=== PATIENT | male | born 2000 | race American Indian/Alaskan Native ===

== ENCOUNTER 2020-07-09 11:31 | Emergency (ER) | payer SELFPAY ==
--- NOTE | 2020-07-09 11:46 | Emergency Department Report ---
<HELIO SANCHEZ - Last Filed: 07/09/20 14:51> ED Psych HPI - General Stated Complaint: MENTAL HEALTH EVAL Time Seen by Provider: 07/09/20 11:44 - History of Present Illness Initial Comments: 20-year-old male presented to triage agitated, with his shirt off, yelling, "Shoot me, shoot me! Take me out!" [facility]men[facility] was called and patient was escorted to the patient treatment area. Patient is currently calm, sitting down with his head in his hands. When I asked patient why he is here, patient responds, "Why am I here? I don't know." When I questioned patient regarding hallucinations, SI, and HI, patient does not respond. According to the nurse's note: Pt's sister, Yousif Up, brought the pt to the ED after increasing episodes of bizarre behavior that have intensified since March of this year. Sister reports that pt has been yelling and screaming loudly in [facility], taking off his clothes and running down the street in his underwear, his younger sister reportedly woke up at 4 am with him standing over her, and yesterday the pt took off his clothes, with the exception of his underwear, and laid in the grass while it was raining outside. Pt denies current SI and HI but his sister reported HI to no one in particular. Pt indicates that he has Schizophrenia but the pt's mother and sister are unaware of any mental health diagnoses. When asked by this RN if he has been diagnosed by a physician the pt says "No, I've been trying to fight it." MD Complaint: altered mental status -: month(s) (3) Associated Psychiatric Symptoms: homicidal ideation Treatments Prior to Arrival: none ED Review of Systems Comment: All other systems reviewed and negative Psychiatric: homicidal thoughts. denies: suicidal thoughts ED Physical Exam - General General appearance: alert, in no apparent distress - Head Head exam: Present: atraumatic, normocephalic - Eye Eye exam: Present: normal appearance, EOMI - ENT ENT exam: Present: mucous membranes moist - Neck Neck exam: Present: normal inspection - Respiratory Respiratory exam: Present: normal lung sounds bilaterally. Absent: respiratory distress - Cardiovascular Cardiovascular Exam: Present: normal rhythm, tachycardia - GI/Abdominal GI/Abdominal exam: Absent: distended - Extremities Exam Extremities exam: Present: normal inspection - Neurological Exam Neurological exam: Present: alert, oriented X3 - Psychiatric Psychiatric exam: Present: normal affect, normal mood - Skin Skin exam: Present: warm, dry, intact, normal color ED Medical Decision Making - Lab Data Result diagrams: 07/09/20 12:05 07/09/20 12:05 - Medical Decision Making 20-year-old male presents to ED for mental health evaluation. Family reports increasingly bizarre behavior over the last 3 months. Patient does not have any known psychiatric diagnoses according to his family, although patient reported that he has schizophrenia. He denies any SI. Sister states patient has reported HI against no one in particular. Labs are unremarkable. Patient has been placed on 1013 at this time. Patient is medically clear for mental health evaluation. Will dispo per psych ED Disposition Clinical Impression: Psychosis Disposition: DC/TX-65 PSY HOSP/PSY UNIT Condition: Stable Referrals: PRIMARY CARE, [Primary Care Provider] - 3-5 Days <KALEE STINSON - Last Filed: 07/10/20 12:44> ED Review of Systems ROS: Stated complaint: MENTAL HEALTH EVAL Other details as noted in HPI ED Course Vital Signs 07/09/20 07/09/20 07/10/20 12:56 20:21 02:06 Temperature 97.4 F L 97.5 F L 97.8 F Pulse Rate 103 H 78 70 Respiratory 20 20 20 Rate Blood Pressure 153/75 122/75 112/62 [Left] O2 Sat by Pulse 98 100 100 Oximetry 07/10/20 07:57 Temperature 98.0 F Pulse Rate 70 Respiratory 18 Rate Blood Pressure 144/81 [Left] O2 Sat by Pulse 100 Oximetry - Reevaluation(s) Reevaluation #1: 07/10/20 12:43 Patient accepted to [facility] ED Medical Decision Making - Lab Data Result diagrams: 07/09/20 12:05 07/09/20 12:05 Critical care attestation.: If time is entered above; I have spent that time in minutes in the direct care of this critically ill patient, excluding procedure time. ED Disposition Is pt being admited?: No Does the pt Need Aspirin: No Time of Disposition: 12:43
[2020-07-09 12:19] LABS: Basophils # (Auto) 0.1 K/mm3 (0.0-0.1); Basophils % (Auto) 1.2 % (0.0-1.8); Eosinophils % (Auto) 0.9 % (0.0-4.3); Hematocrit 44.2 % (35.5-45.6); Hemoglobin 14.7 gm/dl (11.8-15.2); Lymphocytes # (Auto) 1.8 K/mm3 (1.2-5.4); Lymphocytes % (Auto) 34.6 % (13.4-35.0); Mean Corpuscular HGB Conc 33 % (32-34); Mean Corpuscular Volume 80 fl (84-94); Monocytes # (Auto) 0.5 K/mm3 (0.0-0.8); Monocytes % (Auto) 9.1 % (0.0-7.3); Platelet Count 250 K/mm3 (140-440); Red Blood Count 5.55 M/mm3 (3.65-5.03)
[2020-07-09 12:32] LABS: BUN/Creatinine Ratio 11; Blood Urea Nitrogen 16 mg/dL (9-20); Calcium 9.7 mg/dL (8.4-10.2); Hemolysis Index 8
[2020-07-09 15:49] LABS: Bilirubin,Urine NEG (Negative); Blood,Urine NEG (Negative); Color,Urine Yellow (Yellow); Urobilinogen,Urine < 2.0 mg/dL (<2.0)
[2020-07-09 15:56] LABS: WBC,Urine < 1.0 /HPF (0.0-6.0)
[2020-07-09 15:57] LABS: Amphetamine Screen,Urine PRESUMPTIVE NEGATIVE; Benzodiazepines Screen,Urine PRESUMPTIVE NEGATIVE; Cannabinoid Screen,Urine PRESUMPTIVE NEGATIVE; Cocaine Screen,Urine PRESUMPTIVE NEGATIVE; Methadone Screen,Urine PRESUMPTIVE NEGATIVE; Opiate Screen,Urine PRESUMPTIVE NEGATIVE
[2020-07-10 07:59] VITALS: BP 144/81
--- NOTE | 2020-07-10 11:52 | Consultation ---
History of Present Illness - Reason for Consult Consult date: 07/10/20 Reason for consult: bizarre behavior, hallucinating - History of Present Psychiatric Illness Enrique Hackett is a 20y/o male patient who presented to the ER with increasing bizarre behavior, and yelling "shoot me, shoot me. Family states the patient had been running down the street with his clothes off yelling, according to medical record. During my interview with the patient he is lying down, awake. He is staring at the ceiling, other times glancing quickly around the room. He is responding to internal stimuli. He is whispering and barely audible. He is staring with a bizarre look on his face at time. It's difficult to get any information from the patient, and to gauge how much he is being upfront due to his psychosis. The patient says he came here "to get a check up." He then starts barely moving his mouth. The patient then stares at me intensely and then stares back at the ceiling. He responds "no" to most questions I ask him, other times he's just staring intensely at me. When asking about his mood, he asked, "how's yours?" In between questioning he is moving his mouth and and gazing at times. Although it was documented that the patient states he has a history of schizophrenia. The patient denies any psych history during interview. PAST PSYCHIATRIC HISTORY: Suicide attempts or Self-harm behavior: Denies Prior psychiatric hospitalizations: Denies Substance Abuse history: Denies Previous psychiatric medications tried: Denies Outpatient treatment: Denies PAST MEDICAL HISTORY: Family Psychiatric History: None reported or documented SOCIAL HISTORY Unable to obtain REVIEW OF SYSTEMS Constitutional: Negative for weight loss ENT: Negative for stridor Respiratory: Negative for cough or hemoptysis All other systems reviewed and are negative MENTAL STATUS EXAMINATION General Appearance: Dressed appropriately Behavior: calm, cooperative, not forthcoming Mood: Affect and affective range: Restricted Thought Process: Responding to internal stimuli Speech: whispering, mumbling Suicidal Ideation: Denies, unclear came in shouting "shoot me" Homicidal Ideation: Denies Hallucinations: Yes, auditory but the patient denies Delusions: Possibly paranoid Insight and Judgment: Limited Memory/Cognition: Limited Impulse control: Limited Attention: Normal Orientation: Alert, oriented x 3 Assessment Schizoaffective Disorder PLAN 1013 Continue home cogentin Start Depakote DR 125mg po BID Start Risperidone 0.5mg po BID Start Trazodone 50mg po qhs Start Geodon 20mg q6h prn agitation Sitter: Defer to primary Medical: Per primary Disposition: Recommend acute inpatient treatment Will follow. Thank you for this consult Medications and Allergies Allergies Allergy/AdvReac Type Severity Reaction Status Date / Time No Known Allergies Allergy Unverified 07/09/20 15:56 Home Medications Medication Instructions Recorded Confirmed Last Taken Type No Known Home Medications [No 07/09/20 07/09/20 Unknown History Reported Home Medications] Mental Status Exam - Vital signs Last Vital Signs Temp 98.0 F 07/10/20 07:57 Pulse 70 07/10/20 07:57 Resp 18 07/10/20 07:57 BP 144/81 07/10/20 07:57 Pulse Ox 100 07/10/20 07:57 Results Result Diagrams: 07/09/20 12:05 07/09/20 12:05 Abnormal lab results 07/09/20 07/09/20 07/09/20 Range/Units 12:05 12:05 12:05 RBC 5.55 H (3.65-5.03) M/mm3 MCV 80 L (84-94) fl MCH 27 L (28-32) pg RDW 13.0 L (13.2-15.2) % Ware % (Auto) 9.1 H (0.0-7.3) % Creatinine 1.4 H (0.8-1.3) mg/dL Salicylates < 0.3 L (2.8-20.0) mg/dL Acetaminophen (10.0-30.0) ug/mL 07/09/20 Range/Units 12:05 RBC (3.65-5.03) M/mm3 MCV (84-94) fl MCH (28-32) pg RDW (13.2-15.2) % Ware % (Auto) (0.0-7.3) % Creatinine (0.8-1.3) mg/dL Salicylates (2.8-20.0) mg/dL Acetaminophen 5.0 L (10.0-30.0) ug/mL All other labs normal.
[2020-07-10] MEDS ORDERED: ZIPRASIDONE MESYLATE 20 MG VIAL IM PRN (12:03)
[2020-07-10] MEDS ORDERED: DIVALPROEX DR 125 MG TAB PO SCH (13:00)
[2020-07-10] MEDS ORDERED: risperiDONE 0.25 MG TAB PO SCH (13:00)
[2020-07-10] MEDS ORDERED: traZODone 50 MG TAB PO SCH (22:00)
== END 2020-07-10 18:45 ==
LOC: ED 11:31
DX: F23 Brief psychotic disorder (principal)
CPT/HCPCS: 36415; 80048; 80307; 81001; 85025; 96372; 99285; J3486; 80320; G0480